=== PATIENT | female | born 1995 | race African-American/Black ===

== ENCOUNTER 2018-02-15 07:55 | Emergency (ER) | payer OTHER ==
[~2018-02-15] VITALS: Ht 160 cm; Wt 82.0 kg
[2018-02-15 08:08] VITALS: BP 122/65; PULSE 61; RESP 15; TEMP 98; O2SAT 99
[2018-02-15] MEDS ORDERED: LIDOCAINE 1%/EPINEPHrine 1:100,000 SOLN 20 ML VIAL INFIL ONE (09:00)
--- NOTE | 2018-02-15 09:27 | PD ---
HPI Chief Complaint: Laceration/Skin Injury Time Seen by Provider: 08:16 Travel History International Travel<30 days: No Contact w/Intl Traveler<30days: No Traveled to known affect area: No History of Present Illness HPI 22-year-old female presents emergency department with accidental laceration to the posterior right elbow. She was in the shower when she hit a shower shelf causing a laceration. She states bleeding was controlled prior to arrival. She is up-to-date on her tetanus. Patient has no other injury. Pain is minimal. She has no known drug allergies. [facility] Past Medical History ?: Not LMP: 01/2018 Social History Alcohol Use: No Tobacco Use: No Substance Use: No Allergies-Medications (Allergen,Severity, Reaction): Coded Allergies: No Known Allergies (Unverified , 02/15/18) Review of Systems Except as stated in HPI: all other systems reviewed are Neg General / Constitutional: No: Fever Eyes: No: Visual changes HENT: No: Headaches Cardiovascular: No: Chest Pain or Discomfort Respiratory: No: Shortness of Breath Gastrointestinal: No: Abdominal Pain Genitourinary: No: Dysuria Musculoskeletal: No: Pain Skin: No Rash Neurologic: No: Weakness Psychiatric: No: Depression Endocrine: No: Polydipsia Hematologic/Lymphatic: No: Easy Bruising Physical Exam Narrative GENERAL: Patient appears in no acute distress. SKIN: Normal color. Normal turgor. Patient has a 3 cm laceration to the posterior right elbow just above the olecranon. It is linear. Bleeding is controlled. It is full-thickness skin but does not involve any deeper tissues. HEAD: Atraumatic. Normocephalic. EYES: Pupils equal and round. No scleral icterus. No injection or drainage. ENT: No nasal bleeding or discharge. Mucous membranes pink and moist. Pharynx is clear. Airways patent. NECK: Trachea midline. Supple and nontender CARDIOVASCULAR: Regular rate and rhythm. RESPIRATORY: No accessory muscle use. Clear to auscultation. Breath sounds equal bilaterally. MUSCULOSKELETAL: Extremities without clubbing, cyanosis, or edema. No obvious deformities. NEUROLOGICAL: Awake and alert. No obvious cranial nerve deficits. Motor grossly within normal limits. Five out of 5 muscle strength in the arms and legs. Normal speech. PSYCHIATRIC: Appropriate mood and affect; insight and judgment normal. Data Data Last Documented VS Vital Signs Date Time Temp Pulse Resp B/P (MAP) Pulse Ox O2 Delivery O2 Flow Rate FiO2 02/15/18 08:08 98.0 61 15 122/65 (84) 99 Orders Orders Lidocai-Epi 1%-1:100,000 Inj (Xylocaine- (02/15/18 09:00) MDM Medical Decision Making Medical Screen Exam Complete: Yes Emergency Medical Condition: Yes Differential Diagnosis Laceration. Need for closure. Wound care. Narrative Course Laceration is repaired without difficulty. Wound care as discussed. Patient was placed on Keflex 500 mg 3 times daily 7 days. Sutures should remain in place for the next 10 days. Procedures Procedure Narrative LACERATION LOCATION: Right posterior elbow LENGTH: 3 cm NUMBER OF STITCHES/TERESA: 3 interrupted mattress, 4 interrupted simple REPAIR: The area of the laceration was prepped with Betadine and sterilely draped. The laceration was infiltrated with 3ml 1% lidocaine with epi. The wound was copiously irrigated and explored without evidence of foreign body, tendon injury or neurovascular injury. The wound was closed using 5-0 Prolene. This was a single layer repair. A sterile dressing was applied. The patient was advised to keep the dressing clean and dry. Patient tolerated the procedure well. Diagnosis Primary Impression: Laceration of right elbow without complication Qualified Codes: S51.011A - Laceration without foreign body of right elbow, initial encounter Patient Instructions: Care For Your Stitches (ED), General Instructions Additional Instructions: Laceration is repaired without difficulty. Wound care as discussed. Patient was placed on Keflex 500 mg 3 times daily 7 days. Sutures should remain in place for the next 10 days. Disposition: 01 DISCHARGE HOME Condition: Stable Dereck Larose Feb 15, 2018 09:27
[2018-02-15] MEDS ORDERED: CEPH-460 PO (09:28)
== END 2018-02-15 09:47 | disposition home or self-care (01) ==
LOC: NEPK 07:55
DX: S51.011A Laceration without foreign body of right elbow, initial encounter (principal); W22.8XXA Striking against or struck by other objects, initial encounter; Y93.E1 Activity, personal bathing and showering
CPT/HCPCS: 12002